=== PATIENT | female | born 1960 | race Two or more races ===

== ENCOUNTER 2025-04-20 15:25 | Emergency (ER) | payer OTHER ==
[~2025-04-20] VITALS: Ht 167.6 cm; Wt 72.6 kg
[2025-04-20] MEDS ORDERED: LIDOCAINE HCL 1% 10ML VIAL ONE (16:15)
[2025-04-20] MEDS ORDERED: VALSARTAN80 MG (17:01)
[2025-04-20] MEDS ORDERED: ROSUVASTATIN CA40 MG (17:02)
[2025-04-20] MEDS ORDERED: ACETAMINOPHEN 500 MG GEL..CAP PO ONE ×2 (17:30→19:27)
[2025-04-20] MEDS ORDERED: DEXAMETHASONE SODIUM PHOSPHATE 4 MG/ML VIAL IM ONE (17:30)
[2025-04-20] MEDS ORDERED: ORPHENADRINE CITRATE 30 MG/ML AMPUL IM ONE (17:30)
[2025-04-20] MEDS ORDERED: DEXAMETHASONE SODIUM PHOSPHATE 4 MG/ML VIAL ONE (19:27)
[2025-04-20] MEDS ORDERED: ORPHENADRINE CITRATE 30 MG/ML AMPUL ONE (19:27)
[2025-04-20] MEDS ORDERED: NORFLEX100MG PO (21:29)
== END 2025-04-20 23:07 | disposition home or self-care (01) ==
LOC: ER 15:25
DX: S09.8XXA Other specified injuries of head, initial encounter (principal); W18.39XA Other fall on same level, initial encounter; Y93.89 Activity, other specified; Y92.511 Restaurant or cafe as the place of occurrence of the external cause; S79.811A Other specified injuries of right hip, initial encounter; S29.8XXA Other specified injuries of thorax, initial encounter; E78.00 Pure hypercholesterolemia, unspecified; I10 Essential (primary) hypertension; M62.838 Other muscle spasm